=== PATIENT | male | born 1970 | race Caucasian/White ===

== ENCOUNTER → 2019-12-09 | Outpatient (CLI) | payer OTHER ==
[~2019-12-09] MED LIST: ADVAIR 500/501 EA INH; ALBUTEROL0.09 MG/A2 INH; BENADRYL25 MG PO; FARXIGA5 M1 PO; GLUCOPHAGE1000 MG PO; KEFLEX500 MG PO; LISINOPRIL20 MG PO; MAGNESIUM400 MG PO; MEDROL DOSEPAK4 MG PO; MOBIC7.5 MG PO; PRILOSEC20 M1 PO; PROTONIX40 MG PO; SINGULAIR10 MG PO; TUDORZA PRESSAIR; VENTOLIN H0.09 MG/AC INH; VICODIN 5/500 505 MG PO; ZANTAC 150150 MG PO; ZOCOR20 MG PO
== END | disposition home or self-care (01) ==
LOC: COVID19 00:12
PROVIDERS: ATTEND Surgery
DX: Z01.812 Encounter for preprocedural laboratory examination (principal); Z20.828 Contact with and (suspected) exposure to other viral communicable diseases

== ENCOUNTER → 2019-12-14 | Day surgery (SDC) | payer OTHER ==
[~2019-12-14] VITALS: Ht 175.2 cm; Wt 104.3 kg
[2019-12-14 08:30] VITALS: BP 139/90
[2019-12-14 09:30] VITALS: BP 122/65
[2019-12-14 09:45] VITALS: BP 124/80
[2019-12-14 10:00] VITALS: BP 116/85
== END | disposition home or self-care (01) ==
LOC: SDC 02:43
PROVIDERS: ATTEND Surgery
DX: Z12.11 Encounter for screening for malignant neoplasm of colon (principal); D12.8 Benign neoplasm of rectum; I10 Essential (primary) hypertension; E11.9 Type 2 diabetes mellitus without complications; J44.9 Chronic obstructive pulmonary disease, unspecified; K21.9 Gastro-esophageal reflux disease without esophagitis; E78.00 Pure hypercholesterolemia, unspecified; Z87.891 Personal history of nicotine dependence; Z98.890 Other specified postprocedural states

== ENCOUNTER → 2020-01-25 | Outpatient (CLI) | payer OTHER ==
[2020-01-25 07:44] LABS: BASO % 0.6 % (0.0-1.0); EOS # 0.2 10*3/uL (0.0-0.4); EOS % 3.2 % (1.0-4.0); HEMATOCRIT 50.5 % (42.0-52.0); LYMPH # 1.7 10*3/uL (1.3-4.4); LYMPH % 24.3 % (27.0-41.0); MEAN CELL VOLUME 87.1 fl (80.0-94.0); MEAN CORPUSCULAR HGB 29.1 pg (27.0-31.0); MEAN CORPUSCULAR HGB CONC 33.5 g/dl (33.0-37.0); MEAN PLATELET VOLUME 9.6 fl (9.6-12.3); MONO # 0.7 10*3/uL (0.1-1.0); MONO % 9.7 % (3.0-9.0); NEUT # 4.4 10*3/uL (2.3-7.9); NEUT % 61.5 % (47.0-73.0); PLATELET COUNT AUTOMATED 308 10*3/uL (130-400); RED CELL DISTRI WIDTH 12.1 % (0-14.5); WHITE BLOOD COUNT 7.1 10*3/uL (4.8-10.8)
[2020-01-25 08:11] LABS: ALBUMIN 3.9 gm/dl (3.1-4.5); ALKALINE PHOSPHATASE 85 U/L (45-117); BUN 26 mg/dl (7-24); CHLORIDE 107 mmol/L (98-107); CHOLESTEROL 150 mg/dL (<200); CREATININE 1.06 mg/dL (0.70-1.30); HDL CHOLESTEROL 51 mg/dl (40-60); LDL CHOLESTEROL 79 mg/dL (9-159); POTASSIUM 4.8 mmol/L (3.5-5.1); SGOT/AST 26 IU/L (3-35); SGPT/ALT 63 U/L (12-78); SODIUM 135 mmol/L (136-145); TOTAL PROTEIN 7.7 gm/dL (6.4-8.2); TRIGLYCERIDES 101 mg/dl (<150); VLDL CHOLESTEROL 20 mg/dL (6-40)
[2020-01-26 10:12] LABS: CREATININE,URINE 82.8 mg/dL (Not Estab.)
== END | disposition home or self-care (01) ==
LOC: LAB 07:07
PROVIDERS: ATTEND Nurse Practitioner Family
DX: E11.9 Type 2 diabetes mellitus without complications (principal); I10 Essential (primary) hypertension; E78.00 Pure hypercholesterolemia, unspecified

== ENCOUNTER → 2021-11-17 | Outpatient (CLI) | payer OTHER ==
[2021-11-17 09:33] LABS: BASO # 0.1 10*3/uL (0.0-0.1); BASO % 0.6 % (0.0-1.0); EOS # 0.2 10*3/uL (0.0-0.4); EOS % 2.7 % (1.0-4.0); HEMATOCRIT 45.6 % (42.0-52.0); LYMPH # 1.7 10*3/uL (1.3-4.4); LYMPH % 20.1 % (27.0-41.0); MEAN CELL VOLUME 89.4 fl (80.0-94.0); MEAN CORPUSCULAR HGB 29.6 pg (27.0-31.0); MEAN CORPUSCULAR HGB CONC 33.1 g/dl (33.0-37.0); MEAN PLATELET VOLUME 9.6 fl (9.6-12.3); MONO # 0.7 10*3/uL (0.1-1.0); MONO % 8.6 % (3.0-9.0); NEUT # 5.9 10*3/uL (2.3-7.9); NEUT % 67.7 % (47.0-73.0); PLATELET COUNT AUTOMATED 313 10*3/uL (130-400); RED CELL DISTRI WIDTH 12.3 % (0-14.5); WHITE BLOOD COUNT 8.7 10*3/uL (4.8-10.8)
[2021-11-17 10:20] LABS: BUN 25 mg/dl (7-24); CHLORIDE 109 mmol/L (98-107); POTASSIUM 5.1 mmol/L (3.5-5.1); SODIUM 140 mmol/L (136-145)
[2021-11-17 10:22] LABS: ALKALINE PHOSPHATASE 104 U/L (45-117); CHOLESTEROL 144 mg/dL (<200); CREATININE 1.11 mg/dL (0.70-1.30); LDL CHOLESTEROL 79 mg/dL (9-159); SGOT/AST 18 IU/L (3-35); SGPT/ALT 57 U/L (12-78); TOTAL PROTEIN 7.1 gm/dL (6.4-8.2); TRIGLYCERIDES 109 mg/dl (<150)
== END | disposition home or self-care (01) ==
LOC: LAB 08:45
PROVIDERS: ATTEND Nurse Practitioner Family
DX: E11.9 Type 2 diabetes mellitus without complications (principal); I10 Essential (primary) hypertension; E78.00 Pure hypercholesterolemia, unspecified

== ENCOUNTER → 2024-07-23 | Day surgery (SDC) | payer OTHER ==
[~2024-07-23] VITALS: Ht 175.2 cm; Wt 108.0 kg
[~2024-07-23] MED LIST changes: +Lactated Ringer's Solution 1,000 ML IV ONE; +Lidocaine Hydrochloride 2% 5 ML SDV IV ONE; +PROPOFOL 200 MG/20 ML VIAL IV ONE
[2024-07-23 08:21] VITALS: BP 139/93
[2024-07-23 08:56] VITALS: BP 105/20
[2024-07-23 09:10] VITALS: BP 118/84
[2024-07-23 09:26] VITALS: BP 146/90
== END | disposition home or self-care (01) ==
LOC: SDC 07-20 11:00
PROVIDERS: ATTEND Surgery
DX: Z12.11 Encounter for screening for malignant neoplasm of colon (principal); K63.5 Polyp of colon; K57.30 Diverticulosis of large intestine without perforation or abscess without bleeding; K64.8 Other hemorrhoids; E11.9 Type 2 diabetes mellitus without complications; E78.00 Pure hypercholesterolemia, unspecified; I10 Essential (primary) hypertension; E78.5 Hyperlipidemia, unspecified; K21.9 Gastro-esophageal reflux disease without esophagitis; J44.9 Chronic obstructive pulmonary disease, unspecified; Z86.0100 Personal history of colon polyps, unspecified; Z90.89 Acquired absence of other organs; Z87.891 Personal history of nicotine dependence; Z98.890 Other specified postprocedural states; Z79.84 Long term (current) use of oral hypoglycemic drugs; Z79.899 Other long term (current) drug therapy; Z88.8 Allergy status to other drugs, medicaments and biological substances; Z83.3 Family history of diabetes mellitus; Z82.3 Family history of stroke; Z82.49 Family history of ischemic heart disease and other diseases of the circulatory system

== ENCOUNTER 2024-11-03 14:52 | Inpatient (IN) | payer OTHER ==
[~2024-11-03] VITALS: Ht 175.2 cm; Wt 98.2 kg
[~2024-11-03 14:52] MED LIST changes: -Lactated Ringer's Solution 1,000 ML IV ONE; -Lidocaine Hydrochloride 2% 5 ML SDV IV ONE; -PROPOFOL 200 MG/20 ML VIAL IV ONE
[2024-11-03 15:22] VITALS: BP 130/88
[2024-11-03] MEDS ORDERED: SODIUM CHLORIDE 0.9% 1,000 ML IV SCH (15:55)
[2024-11-03 16:44] LABS: BILIRUBIN Negative (Negative); BLOOD Negative (Negative); CLARITY Clear (Clear); COLOR Dark Yellow (Yellow); KETONE 1+ (Negative); NITRITE Positive (Negative); PH 6.0 (4.5-8.0); SPECIFIC GRAVITY 1.015 (1.001-1.030); UROBILINOGEN 1.0 E.U./dl (0.0-1.0)
[2024-11-03 16:59] LABS: BACTERIA 2+; RBC 0-2 rbc/hpf (0-2); WBC 21-30 wbc/hpf (0-5)
[2024-11-03 17:02] LABS: LEUKO ESTERASE Trace (Negative)
[2024-11-03] MEDS ORDERED: ACETAMINOPHEN 325 MG TAB PO PRN (19:40)
[2024-11-03] MEDS ORDERED: Ondansetron Hydrochloride 4 MG/2 ML VIAL IV PRN (19:40)
[2024-11-03] MEDS ORDERED: Acetaminophen/Hydrocodone 5 MG/325 MG TABLET PO PRN (19:40)
[2024-11-03] MEDS ORDERED: ACETAMINOPHEN 650 MG SUPP R PRN (19:40)
[2024-11-03] MEDS ORDERED: BISACODYL 10 MG SUPP R PRN (19:40)
[2024-11-03] MEDS ORDERED: BISACODYL 5 MG TAB PO PRN (19:40)
[2024-11-03] MEDS ORDERED: DEXTROSE 50% 25 GM/50 ML VIAL IV PRN (19:45)
[2024-11-03 19:49] VITALS: BP 159/97
[2024-11-03] MEDS ORDERED: INSULIN LISPRO 1 UNIT/0.01 ML SQ SCH (22:00)
[2024-11-03] MEDS ORDERED: SIMVASTATIN 20 MG TAB PO SCH (22:00)
[2024-11-04 04:00] VITALS: BP 131/76
[2024-11-04 06:00] VITALS: BP 153/95
[2024-11-04] MEDS ORDERED: OMEPRAZOLE 20 MG CAP PO SCH (06:00)
[2024-11-04 07:03] LABS: BASO # 0.1 10*3/uL (0.0-0.1); BASO % 0.3 % (0.0-1.0); EOS # 0.1 10*3/uL (0.0-0.4); EOS % 0.5 % (1.0-4.0); MEAN CELL VOLUME 87.5 fl (80.0-94.0); MEAN CORPUSCULAR HGB 29.2 pg (27.0-31.0); MEAN PLATELET VOLUME 9.4 fl (9.6-12.3); MONO # 1.2 10*3/uL (0.1-1.0); MONO % 6.9 % (3.0-9.0); NEUT # 14.8 10*3/uL (2.3-7.9); NEUT % 85.6 % (47.0-73.0); NUCLEATED RED BLOOD CELL 0.0 % (0.0-0.0); NUCLEATED RED BLOOD CELL 0.0 10*3/uL (0.0-0.0); PLATELET COUNT AUTOMATED 270 10*3/uL (130-400); RED CELL DISTRI WIDTH 12.8 % (0-14.5)
[2024-11-04 07:28] LABS: BUN 15 mg/dl (9-23)
[2024-11-04 09:00] VITALS: BP 155/97
[2024-11-04] MEDS ORDERED: LISINOPRIL 20 MG TAB PO SCH (10:00)
[2024-11-04 12:00] VITALS: BP 170/96
[2024-11-04] MEDS ORDERED: Phenazopyridine Hydrochlorid2 100 MG TAB PO SCH (14:45)
[2024-11-04 16:00] VITALS: BP 159/91
[2024-11-04 22:00] VITALS: BP 152/90
[2024-11-05] VITALS: BP 142/74
[2024-11-05 06:06] LABS: BUN 14 mg/dl (9-23)
[2024-11-05 06:34] LABS: BASO # 0.1 10*3/uL (0.0-0.1); BASO % 0.4 % (0.0-1.0); EOS # 0.1 10*3/uL (0.0-0.4); EOS % 0.5 % (1.0-4.0); MEAN CELL VOLUME 87.3 fl (80.0-94.0); MEAN CORPUSCULAR HGB 29.0 pg (27.0-31.0); MEAN PLATELET VOLUME 9.6 fl (9.6-12.3); MONO # 1.1 10*3/uL (0.1-1.0); MONO % 7.4 % (3.0-9.0); NEUT # 11.8 10*3/uL (2.3-7.9); NEUT % 82.6 % (47.0-73.0); NUCLEATED RED BLOOD CELL 0.0 % (0.0-0.0); NUCLEATED RED BLOOD CELL 0.0 10*3/uL (0.0-0.0); PLATELET COUNT AUTOMATED 327 10*3/uL (130-400); RED CELL DISTRI WIDTH 12.7 % (0-14.5)
[2024-11-05 08:00] VITALS: BP 153/87
[2024-11-05 12:00] VITALS: BP 146/96
[2024-11-05 15:45] VITALS: BP 143/92
[2024-11-05] MEDS ORDERED: LEVOFLOXACIN500 MG PO (16:54)
[2024-11-05] MEDS ORDERED: PHENAZOPYRIDIN100 M1 PO (16:54)
== END 2024-11-05 18:22 | disposition home or self-care (01) | DRG 872 ==
LOC: ED 14:52 → EDHOLD 18:27 → 5E 18:27
PROVIDERS: Emergency Medicine; Student in an Organized Health Care Education/Training Program; ADMIT Internal Medicine; ATTEND Internal Medicine
DX: A41.9 Sepsis, unspecified organism (principal); N39.0 Urinary tract infection, site not specified; N41.0 Acute prostatitis; K21.9 Gastro-esophageal reflux disease without esophagitis; J44.89 Other specified chronic obstructive pulmonary disease; E78.5 Hyperlipidemia, unspecified; I10 Essential (primary) hypertension; F17.210 Nicotine dependence, cigarettes, uncomplicated; R65.20 Severe sepsis without septic shock; E11.65 Type 2 diabetes mellitus with hyperglycemia; N40.1 Benign prostatic hyperplasia with lower urinary tract symptoms; R39.16 Straining to void; R33.9 Retention of urine, unspecified; Z82.3 Family history of stroke; Z79.899 Other long term (current) drug therapy; Z79.01 Long term (current) use of anticoagulants; Z79.2 Long term (current) use of antibiotics; Z82.49 Family history of ischemic heart disease and other diseases of the circulatory system; Z83.3 Family history of diabetes mellitus; Z81.8 Family history of other mental and behavioral disorders; Z80.8 Family history of malignant neoplasm of other organs or systems

== ENCOUNTER → 2024-12-07 | Outpatient (CLI) | payer OTHER ==
[~2024-12-07] MED LIST changes: +GADOTERATE MEGLUMINE 10 MMOL/20 ML VIAL IV ONE; +GADOTERATE MEGLUMINE 5 MMOL/10 ML VIAL IV ONE; +GADOTERATE MEGLUMINE 7.5 MMOL/15 ML VIAL IV ONE; +LEVOFLOXACIN500 MG PO; +PHENAZOPYRIDIN100 M1 PO; +SODIUM CHLORIDE 0.9% 50 ML IV ONE
== END | disposition home or self-care (01) ==
LOC: MRI 11-18 08:00
PROVIDERS: ATTEND Nurse Practitioner Family
DX: N40.0 Benign prostatic hyperplasia without lower urinary tract symptoms (principal); E27.8 Other specified disorders of adrenal gland; N41.0 Acute prostatitis; R59.0 Localized enlarged lymph nodes

== ENCOUNTER → 2024-12-21 | Outpatient (CLI) | payer OTHER ==
[~2024-12-21] MED LIST changes: -GADOTERATE MEGLUMINE 10 MMOL/20 ML VIAL IV ONE
== END | disposition home or self-care (01) ==
LOC: MRI 12-07 14:30
PROVIDERS: ATTEND Nurse Practitioner Family
DX: K76.0 Fatty (change of) liver, not elsewhere classified (principal); N40.0 Benign prostatic hyperplasia without lower urinary tract symptoms; N41.0 Acute prostatitis; E27.8 Other specified disorders of adrenal gland; R59.0 Localized enlarged lymph nodes